=== PATIENT | female | born 1965 | race African-American/Black ===

== ENCOUNTER 2017-07-28 07:16 | Observation (INO) | payer OTHER ==
[~2017-07-28] VITALS: Ht 171.4 cm; Wt 65.5 kg
[~2017-07-28 07:16] MED LIST: AMLO10TA2 PO; ASCO-213 PO; BACITRACIN 50,000 UNIT ONE; BUPIVACAINE/PF 0.5% ONE; FLUT9.9S NS; METH500T97 PO; OXYC1TAB8 PO; POLY17PO5 PO; THROMBIN 5,000 UNIT VIAL TP ONE; TRIA1TAB3 PO; VANCOMYCIN 1,000 MG ONE
[2017-07-28] MEDS ORDERED: LACTATED RINGERS 1,000 ML IV SCH (07:32)
[2017-07-28] MEDS ORDERED: MIDAZOLAM 1 MG/ML, 2ML ONE (09:13)
[2017-07-28] MEDS ORDERED: PROPOFOL 10 MG/ML, 20ML ONE (09:14)
[2017-07-28] MEDS ORDERED: FENTANYL PF 250 MCG/5ML ONE (09:14)
[2017-07-28] MEDS ORDERED: ROCURONIUM 10 MG/ML,10ML ONE (09:15)
[2017-07-28] MEDS ORDERED: CEFAZOLIN 1,000 MG ONE ×2 (09:16)
[2017-07-28] MEDS ORDERED: SODIUM CHLORIDE 0.9% PF 10ML ONE (09:16)
[2017-07-28] MEDS ORDERED: ONDANSETRON 2MG/ML, 2ML ONE (09:17)
[2017-07-28] MEDS ORDERED: DEXAMETHASONE 4 MG/ML, 1ML ONE ×2 (09:17)
[2017-07-28] MEDS ORDERED: PROPOFOL 50 ML ONE (09:36)
[2017-07-28] MEDS ORDERED: GLYCOPYRROLATE 0.4 MG/2 ML, 2ML ONE (10:29)
[2017-07-28] MEDS ORDERED: NEOSTIGMINE 1 MG/ML, 10ML ONE (10:29)
[2017-07-28] MEDS ORDERED: ACETAMINOPHEN 325 MG TABLET PO PRN (11:30)
[2017-07-28] MEDS ORDERED: MEPERIDINE/PF 25MG/0.5ML IVPush PRN (11:30)
[2017-07-28] MEDS ORDERED: ONDANSETRON 2MG/ML, 2ML IVPush PRN ×2 (11:30→13:00)
[2017-07-28] MEDS ORDERED: LABETALOL 5MG/ML, 20ML IV PRN (11:30)
[2017-07-28] MEDS ORDERED: OXYcodone 5 MG/5 ML ORAL.SOL UDC PO PRN (11:30)
[2017-07-28] MEDS ORDERED: hydrALAzine 20 MG/ML, 1ML IV PRN (11:30)
[2017-07-28] MEDS ORDERED: PROMETHAZINE 25 MG/ML, 1ML IV PRN (11:30)
[2017-07-28] MEDS ORDERED: THROMBIN 5,000 UNIT VIAL TP ONE (11:46)
[2017-07-28] MEDS ORDERED: BUPIVACAINE/PF-EPI 0.5% 1:200K IM ONE (11:46)
[2017-07-28] MEDS ORDERED: OXYC1TAB9 PO (12:37)
[2017-07-28] MEDS: HYDROmorphone 1 MG/ML, 1ML IV PRN ×4 (12:50→13:13)
[2017-07-28] MEDS ORDERED: METHOCARBAMOL 750 MG TABLET ONE (12:52)
[2017-07-28] MEDS ORDERED: HYDROmorphone 2 MG/ML, 1ML ONE (12:53)
[2017-07-28] MEDS ORDERED: OXYcodone 5 MG/5 ML ORAL.SOL UDC ONE (12:53)
[2017-07-28] MEDS ORDERED: FENTANYL PF 100 MCG/2ML ONE ×2 (12:53→13:30)
[2017-07-28] MEDS: METHOCARBAMOL 750 MG TABLET PO PRN (12:55)
[2017-07-28] MEDS ORDERED: DIPHENHYDRAMINE 50 MG/ML, 1ML IVPush PRN (13:00)
[2017-07-28] MEDS ORDERED: HYDROmorphone 1 MG/ML, 1ML IVPush PRN (13:00)
[2017-07-28] MEDS ORDERED: CEFAZOLIN PMX 1GM/50ML 50 ML IVPB SCH (13:00)
[2017-07-28] MEDS ORDERED: PROMETHAZINE 25 MG/ML, 1ML IM PRN (13:00)
[2017-07-28] MEDS ORDERED: PHARMACY MAY ADJ FOR RENAL FX MC PRN (13:00)
[2017-07-28] MEDS ORDERED: BISACODYL 10 MG SUPP PR PRN (13:00)
[2017-07-28] MEDS ORDERED: MAGNESIUM HYDROXIDE 8%, 30ML UDC PO PRN (13:00)
[2017-07-28] MEDS: FENTANYL PF 100 MCG/2ML IV PRN ×3 (13:00→13:31)
[2017-07-28] MEDS ORDERED: DIPHENHYDRAMINE 50 MG/ML, 1ML ONE (13:38)
[2017-07-28] MEDS: OXYcodone/APAP 10/325MG TABLET PO PRN ×2 (16:55→22:07)
[2017-07-28] MEDS: GABAPENTIN 300 MG CAPSULE PO SCH ×2 (16:55→22:00)
[2017-07-28] MEDS: NS + 20MEQ KCL 1,000 ML IV SCH ×2 (16:55→23:00)
[2017-07-28] MEDS: DEXAMETHASONE 4 MG/ML, 1ML IVPush SCH ×2 (16:56→23:00)
[2017-07-28 19:08] VITALS: BP 104/74
[2017-07-28] MEDS: CEFAZOLIN PMX 1GM/50ML 50 ML IVPB SCH (19:29)
[2017-07-28] MEDS: SODIUM CHLORIDE FLUSH 10ML SYR IVF SCH (21:00)
[2017-07-29 01:11] VITALS: BP 110/73
[2017-07-29] MEDS: NS + 20MEQ KCL 1,000 ML IV SCH (01:20)
[2017-07-29] MEDS: METHOCARBAMOL 750 MG TABLET PO PRN ×2 (02:10→10:16)
[2017-07-29] MEDS: OXYcodone/APAP 10/325MG TABLET PO PRN ×3 (02:10→10:16)
[2017-07-29] MEDS: CEFAZOLIN PMX 1GM/50ML 50 ML IVPB SCH (03:40)
[2017-07-29] MEDS: DEXAMETHASONE 4 MG/ML, 1ML IVPush SCH ×2 (05:00→10:51)
[2017-07-29 07:55] VITALS: BP 116/75
[2017-07-29] MEDS ORDERED: SENNA/DOCUSATE TABLET PO SCH (09:00)
[2017-07-29] MEDS ORDERED: FLUTICASONE NASAL SPRAY 16GM NAS SCH (09:00)
[2017-07-29] MEDS ORDERED: AMLODIPINE 5 MG TABLET PO SCH (09:00)
[2017-07-29] MEDS ORDERED: POLYETHYLENE GLYCOL 17 GM PACKET PO SCH (09:00)
[2017-07-29] MEDS ORDERED: TRIAMTERENE-HCTZ 37.5/25 MG TABLET PO SCH (09:00)
[2017-07-29] MEDS: SODIUM CHLORIDE FLUSH 10ML SYR IVF SCH (09:04)
[2017-07-29] MEDS: GABAPENTIN 300 MG CAPSULE PO SCH (09:07)
[2017-07-29 10:49] VITALS: BP 122/84
[2017-07-29] MEDS ORDERED: GABA300C PO (11:40)
[2017-07-29] MEDS ORDERED: METH500T97 PO (11:41)
[2017-07-29] MEDS ORDERED: medrol (11:42)
[2017-07-29] MEDS ORDERED: DIAZ5TAB PO (11:42)
== END 2017-07-29 12:00 | disposition home or self-care (01) ==
LOC: OUT 07:16 → ORIP 12:38 → 4NOR 14:14 → DCLOUNGE 07-29 11:39
PROVIDERS: ADMIT Neurological Surgery; ATTEND Neurological Surgery
DX: M48.061 Spinal stenosis, lumbar region without neurogenic claudication (principal); M17.9 Osteoarthritis of knee, unspecified; M51.36 Other intervertebral disc degeneration, lumbar region; Z83.3 Family history of diabetes mellitus; Z82.49 Family history of ischemic heart disease and other diseases of the circulatory system
CPT/HCPCS: 63047; 63048; 72100; 96365; 96375; 96376; G0378; J0690; J1100; J1170; J1200; J2250; J2405; J2704; J2710; J3010; J3480; J3490; J7120; J3370

== ENCOUNTER → 2017-09-09 | Outpatient (CLI) | payer OTHER ==
[~2017-09-09] MED LIST changes: -BACITRACIN 50,000 UNIT ONE; -BUPIVACAINE/PF 0.5% ONE; +DIAZ5TAB PO; +GABA300C PO; +OXYC1TAB9 PO; -THROMBIN 5,000 UNIT VIAL TP ONE; -VANCOMYCIN 1,000 MG ONE; +medrol
== END | disposition home or self-care (01) ==
LOC: CFH 09:03
PROVIDERS: ATTEND Nurse Practitioner Family
DX: Z12.31 Encounter for screening mammogram for malignant neoplasm of breast (principal)
CPT/HCPCS: 77067

== ENCOUNTER → 2018-01-10 | Outpatient (CLI) | payer OTHER ==
[~2018-01-10] MED LIST changes: +OXYC1TAB7 PO; +TRIA1TAB5 PO
[2018-01-10 15:10] LABS: BASOPHILS # (AUTO) 0.09 x10^3/uL (0-0.1); BASOPHILS % (AUTO) 1 % (0-1); EOSINOPHILS # (AUTO) 0.07 x10^3/uL (0-0.4); EOSINOPHILS % (AUTO) 1 % (1-7); LYMPHOCYTES # (AUTO) 2.61 x10^3/uL (1-3.4); LYMPHOCYTES % (AUTO) 36 % (22-44); MD NO; MEAN CORPUSCULAR HEMOGLOBIN 31.2 pg (27.0-34.8); MEAN CORPUSCULAR HGB CONC 32.4 g/dL (32.4-35.8); MEAN CORPUSCULAR VOLUME 96.3 fL (80-100); MEAN PLATELET VOLUME 7.6 fL (7.4-10.4); MONOCYTES # (AUTO) 0.63 x10^3/uL (0.2-0.8); MONOCYTES % (AUTO) 9 % (2-9); NEUTROPHILS # (AUTO) 3.94 x10^3/uL (1.8-6.8); NEUTROPHILS % (AUTO) 54 % (42-75); PLATELET COUNT 393 x10^3/uL (130-400); RED CELL DISTRIBUTION WIDTH 20.1 % (9.6-15.2)
[2018-01-10 15:14] LABS: MICROSCOPIC NOT IND
[2018-01-10 15:19] LABS: CULTURE INDICATED? NO
[2018-01-10 15:19] LABS: ALANINE AMINOTRANSFERASE 45 U/L (12-78); ANION GAP 8 mmol/L (5-15); CALCIUM 8.7 mg/dL (8.5-10.1); CHLORIDE 106 mmol/L (98-107); CREATININE 1.03 mg/dL (0.55-1.02)
[2018-01-10 15:21] LABS: ALKALINE PHOSPHATASE 88 U/L (45-117); BILIRUBIN,TOTAL 0.3 mg/dL (0.2-1.0)
[2018-01-10 15:31] LABS: HEMOGLOBIN A1C 5.6 % (4.2-6.3)
[2018-01-10 15:55] LABS: INTERNATIONAL NORMALIZED RATIO 0.97 (0.93-1.1)
== END | disposition home or self-care (01) ==
LOC: STAR 14:01
PROVIDERS: ATTEND Orthopaedic Surgery
DX: Z01.818 Encounter for other preprocedural examination (principal); M17.12 Unilateral primary osteoarthritis, left knee
CPT/HCPCS: 36415; 80053; 81003; 83036; 85025; 85610; 85730; 87081; 87806; G0475

== ENCOUNTER 2018-01-16 05:42 | Inpatient (IN) | payer OTHER ==
[~2018-01-16] VITALS: Ht 171.4 cm; Wt 65.0 kg
[~2018-01-16 05:42] MED LIST changes: +OXYC-432 PO; -OXYC1TAB9 PO
[2018-01-16] MEDS: D5%-0.45NACL+KCL 20MEQ 1,000 ML IV SCH ×2 (06:51→19:30)
[2018-01-16] MEDS ORDERED: TRANEXAMIC ACID 100 MG/ML, 10ML ONE ×3 (07:00)
[2018-01-16] MEDS ORDERED: ONDANSETRON 4 MG TABLET PO PRN (07:00)
[2018-01-16] MEDS ORDERED: HYDROmorphone 1 MG/ML, 1ML IV PRN (07:00)
[2018-01-16] MEDS ORDERED: DIAZEPAM 5 MG TABLET PO PRN (07:00)
[2018-01-16] MEDS ORDERED: DIPHENHYDRAMINE 50 MG CAPSULE PO PRN (07:00)
[2018-01-16] MEDS ORDERED: KETOROLAC 60 MG/2 ML ONE (07:00)
[2018-01-16] MEDS ORDERED: SENNA/DOCUSATE TABLET PO PRN (07:00)
[2018-01-16] MEDS ORDERED: GABAPENTIN 300 MG CAPSULE PO ONE (07:00)
[2018-01-16] MEDS ORDERED: ACETAMINOPHEN 650 MG/20.3 ML UDC PO PRN (07:00)
[2018-01-16] MEDS ORDERED: ACETAMINOPHEN 500 MG TABLET PO ONE (07:00)
[2018-01-16] MEDS ORDERED: ONDANSETRON 2MG/ML, 2ML IV PRN (07:00)
[2018-01-16] MEDS ORDERED: ALUMINUM/MAG/SIMETHICONE 30 ML UDC PO PRN (07:00)
[2018-01-16] MEDS ORDERED: MAGNESIUM HYDROXIDE 8%, 30ML UDC PO PRN (07:00)
[2018-01-16] MEDS ORDERED: ROPIvacaine/PF 0.2%, 20 ML ONE (07:01)
[2018-01-16] MEDS ORDERED: EPINEPHRINE 1 MG/ML, 1ML ONE (07:01)
[2018-01-16] MEDS ORDERED: FENTANYL PF 250 MCG/5ML ONE (07:02)
[2018-01-16] MEDS ORDERED: MIDAZOLAM 1 MG/ML, 2ML ONE (07:02)
[2018-01-16] MEDS ORDERED: LACTATED RINGERS 1,000 ML IV SCH (07:13)
[2018-01-16] MEDS ORDERED: ONDANSETRON 2MG/ML, 2ML ONE (07:26)
[2018-01-16] MEDS ORDERED: PROPOFOL 10 MG/ML, 20ML ONE (07:26)
[2018-01-16] MEDS ORDERED: CEFAZOLIN 1,000 MG ONE (07:26)
[2018-01-16] MEDS ORDERED: DEXAMETHASONE 4 MG/ML, 1ML ONE (07:26)
[2018-01-16] MEDS ORDERED: hydrALAzine 20 MG/ML, 1ML IV PRN (08:30)
[2018-01-16] MEDS ORDERED: ALBUTEROL SULFATE 2.5 MG/3 ML NPPB PRN (08:30)
[2018-01-16] MEDS ORDERED: OXYcodone 5 MG/5 ML ORAL.SOL UDC PO PRN (08:30)
[2018-01-16] MEDS ORDERED: MORPHINE SULFATE 4 MG/ML, 1ML IVPush PRN (08:30)
[2018-01-16] MEDS ORDERED: LORazepam 2 MG/ML, 1ML IVPush PRN (08:30)
[2018-01-16] MEDS ORDERED: PROMETHAZINE 25 MG/ML, 1ML IV PRN (08:30)
[2018-01-16] MEDS ORDERED: LABETALOL 5MG/ML, 20ML IV PRN (08:30)
[2018-01-16] MEDS ORDERED: MEPERIDINE/PF 25MG/0.5ML IVPush PRN (08:30)
[2018-01-16] MEDS: DOCUSATE 100 MG CAPSULE PO SCH ×2 (09:00→19:56)
[2018-01-16] MEDS: RIVAROXABAN 10 MG TABLET PO SCH (09:00)
[2018-01-16] MEDS ORDERED: OXYcodone 5 MG/5 ML ORAL.SOL UDC ONE (09:12)
[2018-01-16] MEDS ORDERED: MEPERIDINE/PF 50 MG/ML ONE (09:12)
[2018-01-16] MEDS ORDERED: FENTANYL PF 100 MCG/2ML ONE (09:12)
[2018-01-16] MEDS: FENTANYL PF 100 MCG/2ML IV PRN ×2 (09:30→09:35)
[2018-01-16] MEDS ORDERED: TRANEXAMIC ACID 1,000 MG in SODIUM CHLORIDE 0.9% 100 ML IVPB ONE (09:30)
[2018-01-16] MEDS ORDERED: HYDROmorphone 2 MG/ML, 1ML ONE (09:40)
[2018-01-16] MEDS: HYDROmorphone 1 MG/ML, 1ML IV PRN ×2 (09:40→10:00)
[2018-01-16 13:14] VITALS: BP 120/82
[2018-01-16] MEDS: OXYcodone IR 5MG TABLET PO PRN ×3 (15:29→20:08)
[2018-01-16] MEDS: CEFAZOLIN PMX 1GM/50ML 50 ML IVPB SCH ×2 (15:32→23:30)
[2018-01-16 19:50] VITALS: BP 128/76
[2018-01-16] MEDS ORDERED: DIPHENHYDRAMINE 25 MG CAPSULE PO PRN (23:00)
[2018-01-17 00:30] VITALS: BP 101/65
[2018-01-17] MEDS: OXYcodone IR 5MG TABLET PO PRN ×6 (00:44→22:45)
[2018-01-17] MEDS: D5%-0.45NACL+KCL 20MEQ 1,000 ML IV SCH ×3 (05:30→22:39)
[2018-01-17] MEDS ORDERED: DEXAMETHASONE 4 MG/ML, 1ML IVPush SCH (06:00)
[2018-01-17] MEDS: RIVAROXABAN 10 MG TABLET PO SCH (07:37)
[2018-01-17] MEDS: KETOROLAC 30 MG/1 ML IV SCH ×3 (07:37→22:45)
[2018-01-17] MEDS: DOCUSATE 100 MG CAPSULE PO SCH ×2 (07:38→20:44)
[2018-01-17 07:47] VITALS: BP 112/78
[2018-01-17] MEDS ORDERED: CELE200C PO (10:31)
[2018-01-17] MEDS ORDERED: DIAZ5TAB4 PO (10:32)
[2018-01-17] MEDS ORDERED: DOCU-131 PO (10:33)
[2018-01-17] MEDS ORDERED: TRAM50TA2 PO (10:34)
[2018-01-17] MEDS ORDERED: ONDA4TAB10 PO (10:35)
[2018-01-17] MEDS ORDERED: OXYC5TAB3 PO (10:37)
[2018-01-17] MEDS ORDERED: RIVA10TA PO (10:38)
[2018-01-17 12:53] VITALS: BP 113/67
[2018-01-17 18:57] VITALS: BP 109/73
[2018-01-18 01:04] VITALS: BP 102/69
[2018-01-18] MEDS: OXYcodone IR 5MG TABLET PO PRN ×2 (02:44→08:37)
[2018-01-18 06:40] VITALS: BP 103/72
[2018-01-18] MEDS: DOCUSATE 100 MG CAPSULE PO SCH (08:33)
[2018-01-18] MEDS: RIVAROXABAN 10 MG TABLET PO SCH (08:37)
[2018-01-18] MEDS ORDERED: OXYC10TA47 PO (09:20)
== END 2018-01-18 09:40 | disposition home or self-care (01) | DRG 470 ==
LOC: ORIP 05:42 → 4NOR 10:38 → DCLOUNGE 01-18 09:17
PROVIDERS: ADMIT Orthopaedic Surgery; ATTEND Orthopaedic Surgery
PROC: 0SRC069 Replacement of Right Knee Joint with Oxidized Zirconium on Polyethylene Synthetic Substitute, Cemented, Open Approach (ICD-10-PCS; principal; 2018-01-16 07:30)
DX: M17.11 Unilateral primary osteoarthritis, right knee (principal); M87.851 Other osteonecrosis, right femur; G89.29 Other chronic pain; Z88.0 Allergy status to penicillin
CPT/HCPCS: 36415; 85014; 85018; C1713; J0171; J0690; J1100; J1170; J1885; J2175; J2250; J2405; J2704; J2795; J3010; C1776; Q0163

== ENCOUNTER 2018-03-08 05:00 | Inpatient (IN) | payer OTHER ==
[~2018-03-08] VITALS: Ht 170.2 cm; Wt 70.0 kg
[~2018-03-08 05:00] MED LIST changes: +CELE200C PO; +DIAZ5TAB4 PO; +DOCU-131 PO; +ONDA4TAB10 PO; +OXYC10TA47 PO; +OXYC5TAB3 PO; +RIVA10TA PO; +TRAM50TA2 PO
[2018-03-08] MEDS ORDERED: SODIUM CHLORIDE 0.9% 1,000 ML IV ONE (05:20)
[2018-03-08] MEDS ORDERED: SODIUM CHLORIDE FLUSH 10ML SYR IVF ONE (05:30)
[2018-03-08] MEDS ORDERED: PROMETHAZINE 25 MG/ML, 1ML IM ONE (05:30)
[2018-03-08] MEDS ORDERED: SODIUM CHLORIDE 0.9% 1,000ML IVBOLUS ONE (05:30)
[2018-03-08] MEDS ORDERED: PROMETHAZINE 25 MG/ML, 1ML ONE (05:52)
[2018-03-08 06:02] LABS: BASOPHILS # (AUTO) 0.04 x10^3/uL (0-0.1); BASOPHILS % (AUTO) 1 % (0-1); EOSINOPHILS # (AUTO) 0.27 x10^3/uL (0-0.4); EOSINOPHILS % (AUTO) 3 % (1-7); LYMPHOCYTES # (AUTO) 3.42 x10^3/uL (1-3.4); LYMPHOCYTES % (AUTO) 42 % (22-44); MD NO; MEAN CORPUSCULAR HEMOGLOBIN 31.7 pg (27.0-34.8); MEAN CORPUSCULAR VOLUME 95.9 fL (80-100); MEAN PLATELET VOLUME 8.5 fL (7.4-10.4); MONOCYTES # (AUTO) 0.72 x10^3/uL (0.2-0.8); MONOCYTES % (AUTO) 9 % (2-9); NEUTROPHILS # (AUTO) 3.62 x10^3/uL (1.8-6.8); NEUTROPHILS % (AUTO) 45 % (42-75); PLATELET COUNT 432 x10^3/uL (130-400); RED BLOOD COUNT 4.58 x10^6/uL (3.82-5.3); RED CELL DISTRIBUTION WIDTH 13.9 % (9.6-15.2)
[2018-03-08 06:15] LABS: CHLORIDE 99 mmol/L (98-107)
[2018-03-08 06:21] LABS: ALANINE AMINOTRANSFERASE 30 U/L (12-78); ALBUMIN 4.2 g/dL (3.4-5.0); ALKALINE PHOSPHATASE 106 U/L (45-117); ANION GAP 12 mmol/L (5-15); BILIRUBIN,TOTAL 0.6 mg/dL (0.2-1.0); CALCIUM 9.8 mg/dL (8.5-10.1); CREATININE 3.03 mg/dL (0.55-1.02); TOTAL PROTEIN 9.3 g/dL (6.4-8.2)
[2018-03-08] MEDS ORDERED: NS + 40MEQ KCL 1,000 ML IV SCH (06:30)
[2018-03-08] MEDS ORDERED: POTASSIUM CHLORIDE 20 MEQ in SODIUM CHLORIDE 0.9% 1,000 ML IV ONE (06:41)
[2018-03-08] MEDS ORDERED: SODIUM CHLORIDE FLUSH 10ML SYR IVF PRN (07:00)
[2018-03-08 08:01] VITALS: BP 105/92
[2018-03-08] MEDS ORDERED: AMLO5TAB2 PO (08:17)
[2018-03-08] MEDS ORDERED: ONDANSETRON 2MG/ML, 2ML IVPush PRN (11:00)
[2018-03-08] MEDS ORDERED: LABETALOL 5MG/ML, 20ML IVPush PRN (11:00)
[2018-03-08] MEDS ORDERED: BISACODYL 10 MG SUPP PR PRN (11:00)
[2018-03-08] MEDS ORDERED: ACETAMINOPHEN 325 MG TABLET PO PRN (11:00)
[2018-03-08] MEDS ORDERED: DOCUSATE 100 MG CAPSULE PO PRN (11:00)
[2018-03-08] MEDS ORDERED: POLYETHYLENE GLYCOL 17 GM PACKET PO PRN (11:00)
[2018-03-08] MEDS: HEPARIN 5,000 UNITS/ML, 1ML SQ SCH ×2 (11:14→19:27)
[2018-03-08 11:53] LABS: MICROSCOPIC NOT IND
[2018-03-08 12:00] LABS: CULTURE INDICATED? NO
[2018-03-08 12:49] LABS: HEMOGLOBIN A1C 4.8 % (4.2-6.3)
[2018-03-08 12:58] VITALS: BP 103/72
[2018-03-08 15:15] LABS: ANION GAP 9 mmol/L (5-15); CALCIUM 8.7 mg/dL (8.5-10.1); CHLORIDE 105 mmol/L (98-107); CREATININE 2.57 mg/dL (0.55-1.02)
[2018-03-08] MEDS: NS + 40MEQ KCL 1,000 ML IV SCH ×2 (15:39→23:43)
[2018-03-08] MEDS: OXYcodone IR 5MG TABLET PO PRN ×2 (19:28→23:47)
[2018-03-08 19:56] VITALS: BP 122/88
[2018-03-08] MEDS ORDERED: AMLODIPINE 5 MG TABLET PO SCH (21:00)
[2018-03-09 03:00] VITALS: BP 104/71
[2018-03-09] MEDS: HEPARIN 5,000 UNITS/ML, 1ML SQ SCH ×3 (03:23→20:45)
[2018-03-09] MEDS: OXYcodone IR 5MG TABLET PO PRN ×4 (03:31→19:38)
[2018-03-09 06:20] LABS: MEAN CORPUSCULAR HEMOGLOBIN 31.7 pg (27.0-34.8); MEAN CORPUSCULAR HGB CONC 32.4 g/dL (32.4-35.8); MEAN PLATELET VOLUME 8.7 fL (7.4-10.4); PLATELET COUNT 294 x10^3/uL (130-400); RED BLOOD COUNT 3.29 x10^6/uL (3.82-5.3); RED CELL DISTRIBUTION WIDTH 13.8 % (9.6-15.2)
[2018-03-09 06:24] LABS: ANION GAP 8 mmol/L (5-15); CALCIUM 8.1 mg/dL (8.5-10.1); CHLORIDE 112 mmol/L (98-107)
[2018-03-09 06:26] LABS: CREATININE 2.09 mg/dL (0.55-1.02)
[2018-03-09 06:44] LABS: BASOPHILS # (AUTO) 0.06 x10^3/uL (0-0.1); BASOPHILS % (AUTO) 1 % (0-1); EOSINOPHILS # (AUTO) 0.16 x10^3/uL (0-0.4); EOSINOPHILS % (AUTO) 3 % (1-7); LYMPHOCYTES # (AUTO) 3.14 x10^3/uL (1-3.4); LYMPHOCYTES % (AUTO) 55 % (22-44); MD SCAN; MONOCYTES # (AUTO) 0.49 x10^3/uL (0.2-0.8); MONOCYTES % (AUTO) 9 % (2-9); NEUTROPHILS # (AUTO) 1.82 x10^3/uL (1.8-6.8); NEUTROPHILS % (AUTO) 32 % (42-75)
[2018-03-09 08:16] VITALS: BP 99/63
[2018-03-09] MEDS: NS + 40MEQ KCL 1,000 ML IV SCH ×2 (08:34→17:20)
[2018-03-09 12:35] VITALS: BP 100/66
[2018-03-09 19:02] VITALS: BP 103/70
[2018-03-10] MEDS: OXYcodone IR 5MG TABLET PO PRN ×5 (00:12→20:19)
[2018-03-10] MEDS: NS + 40MEQ KCL 1,000 ML IV SCH ×3 (00:12→20:19)
[2018-03-10 04:00] VITALS: BP 104/72
[2018-03-10] MEDS: HEPARIN 5,000 UNITS/ML, 1ML SQ SCH ×3 (05:58→18:11)
[2018-03-10 07:40] VITALS: BP 102/68
[2018-03-10 12:30] VITALS: BP 111/75
[2018-03-10 19:58] VITALS: BP 114/75
[2018-03-11] MEDS: HEPARIN 5,000 UNITS/ML, 1ML SQ SCH ×2 (01:01→10:00)
[2018-03-11] MEDS: OXYcodone IR 5MG TABLET PO PRN ×4 (01:01→13:55)
[2018-03-11 03:26] VITALS: BP 94/62
[2018-03-11] MEDS: NS + 40MEQ KCL 1,000 ML IV SCH ×2 (04:18→12:00)
[2018-03-11 06:02] LABS: ALBUMIN 2.6 g/dL (3.4-5.0); ANION GAP 6 mmol/L (5-15); CHLORIDE 114 mmol/L (98-107)
[2018-03-11 06:05] LABS: ALANINE AMINOTRANSFERASE 16 U/L (12-78); ALKALINE PHOSPHATASE 60 U/L (45-117); BILIRUBIN,TOTAL 0.4 mg/dL (0.2-1.0); CREATININE 1.04 mg/dL (0.55-1.02); TOTAL PROTEIN 5.7 g/dL (6.4-8.2)
[2018-03-11 07:11] VITALS: BP 101/69
[2018-03-11 13:22] VITALS: BP 122/83
== END 2018-03-11 14:04 | disposition home or self-care (01) | DRG 391 ==
LOC: ED 06:40 → 3NE 06:41 → ED 07:10
PROVIDERS: ADMIT Hospitalist; ATTEND Internal Medicine
DX: A08.4 Viral intestinal infection, unspecified (principal); N17.0 Acute kidney failure with tubular necrosis; E87.1 Hypo-osmolality and hyponatremia; N17.9 Acute kidney failure, unspecified; N05.9 Unspecified nephritic syndrome with unspecified morphologic changes; I10 Essential (primary) hypertension; E87.6 Hypokalemia; D64.9 Anemia, unspecified; E86.1 Hypovolemia; G89.29 Other chronic pain; R73.9 Hyperglycemia, unspecified; R00.0 Tachycardia, unspecified; E86.0 Dehydration; N26.1 Atrophy of kidney (terminal); Z90.710 Acquired absence of both cervix and uterus; Z96.652 Presence of left artificial knee joint
CPT/HCPCS: 36415; 74021; 74150; 76770; 80048; 80053; 81003; 81050; 82436; 82570; 83036; 83690; 83735; 84100; 84133; 84156; 84300; 85025; 96360; 96372; 99285; J1644; J2405; J2550; J3480; J7030

== ENCOUNTER → 2018-07-06 | Outpatient (CLI) | payer OTHER ==
[~2018-07-06] MED LIST changes: +AMLO-150 PO; -AMLO10TA2 PO; +AMLO10TA6 PO
== END | disposition home or self-care (01) ==
LOC: CFH 09:14
PROVIDERS: ATTEND Internal Medicine
DX: M51.37 Other intervertebral disc degeneration, lumbosacral region (principal); M25.78 Osteophyte, vertebrae; M48.07 Spinal stenosis, lumbosacral region
CPT/HCPCS: 72148

== ENCOUNTER 2020-12-01 13:54 | Emergency (ER) | payer MEDICARE, MEDICAID, OTHER ==
[~2020-12-01] VITALS: Ht 172.7 cm; Wt 76.3 kg
[~2020-12-01 13:54] MED LIST changes: +ACET325T14 PO; +AMLO-211 PO; -AMLO10TA6 PO; +CETI10TA76 PO; +FLUT9.9S NAS; -OXYC-432 PO; +OXYC10TA6 PO; +OXYC1TAB18 PO; -OXYC5TAB3 PO; +OXYC5TAB98 PO; -RIVA10TA PO; +RIVA10TA2 PO; +SENN-99 PO; +WOMEN'S ONE A DAY PO
--- NOTE | 2020-12-01 14:57 | NUR ---
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
[2020-12-01 15:18] LABS: BASOPHILS % (AUTO) 1 % (0-1); EOSINOPHILS % (AUTO) 2 % (1-7); LYMPHOCYTES % (AUTO) 33 % (22-44); MEAN CORPUSCULAR HEMOGLOBIN 30.3 pg (27.0-34.8); MEAN CORPUSCULAR HGB CONC 33.1 g/dL (32.4-35.8); MEAN PLATELET VOLUME 7.7 fL (7.4-10.4); MONOCYTES % (AUTO) 8 % (2-9); NEUTROPHILS % (AUTO) 56 % (42-75); PLATELET COUNT 288 x10^3/uL (130-400); RED BLOOD COUNT 4.05 x10^6/uL (3.82-5.3); RED CELL DISTRIBUTION WIDTH 13.8 % (9.6-15.2)
[2020-12-01 15:19] VITALS: BP 124/88
[2020-12-01 15:21] LABS: ALBUMIN 4.4 g/dL (3.4-5.0); ANION GAP 9 mmol/L (5-15); CALCIUM 9.6 mg/dL (8.5-10.1); CHLORIDE 102 mmol/L (98-107); CREATININE 1.16 mg/dL (0.55-1.02)
--- NOTE | 2020-12-01 15:22 | NUR ---
RECEIVED REPORT FROM SHANNON ARAMBULA
[2020-12-01] MEDS ORDERED: POTASSIUM CHLORIDE 20 MEQ TAB.ER.PRT PO ONE (16:30)
[2020-12-01] MEDS ORDERED: POTASSIUM CHLORIDE 20 MEQ TAB.ER.PRT ONE (16:35)
--- NOTE | 2020-12-01 16:57 | NUR ---
DISCHARGE INSTRUCTIONS REVIEWED. PT VERBALIZED UNDERSTANDING. AMBULATORY TO DISCHARGE DESK WITH STEADY GAIT.
== END 2020-12-01 16:59 | disposition home or self-care (01) ==
LOC: ED 16:53
DX: S43.402A Unspecified sprain of left shoulder joint, initial encounter (principal); S93.501A Unspecified sprain of right great toe, initial encounter; S30.1XXA Contusion of abdominal wall, initial encounter; S90.111A Contusion of right great toe without damage to nail, initial encounter; E87.6 Hypokalemia; I10 Essential (primary) hypertension; V49.59XA Passenger injured in collision with other motor vehicles in traffic accident, initial encounter; Y93.89 Activity, other specified; Y92.89 Other specified places as the place of occurrence of the external cause; Y99.8 Other external cause status
CPT/HCPCS: 36415; 80048; 82040; 85025; 99284

== ENCOUNTER → 2021-02-10 | Outpatient (CLI) | payer MEDICARE, MEDICAID | END | disposition home or self-care (01) | LOC: CFH 08:36 | PROVIDERS: ATTEND Internal Medicine Cardiovascular Disease | DX: I34.0 Nonrheumatic mitral (valve) insufficiency (principal); I10 Essential (primary) hypertension; E78.5 Hyperlipidemia, unspecified | CPT/HCPCS: 93306; 93356 ==

== ENCOUNTER 2021-03-24 13:28 | Emergency (ER) | payer MEDICARE, MEDICAID ==
[~2021-03-24] VITALS: Ht 172.7 cm; Wt 75.7 kg
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
--- NOTE | 2021-03-24 14:08 | NUR ---
sustainability project coordinator: c-collar placed in triage
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
[2021-03-24] MEDS ORDERED: KETOROLAC 30 MG/1 ML IM ONE (14:30)
[2021-03-24] MEDS ORDERED: KETOROLAC 30 MG/1 ML ONE (14:47)
--- NOTE | 2021-03-24 15:32 | NUR ---
AWAITING IMAGING READS. PT REMAINS IN IMAGING.
[2021-03-24 17:01] VITALS: BP 128/59
== END 2021-03-24 17:04 | disposition home or self-care (01) ==
LOC: ED 13:58
DX: S39.012A Strain of muscle, fascia and tendon of lower back, initial encounter (principal); S20.212A Contusion of left front wall of thorax, initial encounter; S16.1XXA Strain of muscle, fascia and tendon at neck level, initial encounter; F17.210 Nicotine dependence, cigarettes, uncomplicated; V49.49XA Driver injured in collision with other motor vehicles in traffic accident, initial encounter; Y93.89 Activity, other specified; Y92.410 Unspecified street and highway as the place of occurrence of the external cause; Y99.8 Other external cause status
CPT/HCPCS: 71101; 72110; 72125; 96372; 99284; J1885